=== PATIENT | female | born 1990 ===

== ENCOUNTER 2017-06-18 21:07 | Emergency (ER) | payer OTHER ==
--- NOTE | 2017-06-18 21:20 | EDM.PDOC ---
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 Patient's approximately 9 weeks . This was confirmed via OB/ [employer] MACH[employer] Dr. Padron in his office. She's been seen weekly to ensure hormone levels are increasing to which they have been. She has a history of ectopic pregnancyx1 on the left side and also history of miscarriagex1. States the bleeding started this evening at approximately 8:30 after returning home from work. Discharge is pink in color. She has had some abdominal cramping as well with onset of spotting. Bleeding has not saturated her pad. Discomfort currently 3 out of 10. She had sexual intercourse yesterday with no discomfort. Denies any heavy lifting, strenuous activities today that may have precipitated this. Her last menstrual cycle was April 21 through the . Blood type is O+. There's been no abnormal discharge or foul odor present. She denies any dysuria, dizziness, vomiting, or any underlying bleeding disorders. She has no additional past medical history and currently taking vitamins. history 4, para 1, miscarriage 1, ectopic 1, 0. Pelvic Pain Score (Numeric/FACES): 4 - Related Data Allergies Allergy/AdvReac Type Severity Reaction Status Date / Time Sulfa (Sulfonamide Allergy Hives Verified 06/18/17 21:20 Antibiotics) Home Meds: Home Meds . [No Known Home Meds] 06/18/17 [History] ED ROS GENERAL - Review of Systems Review Of Systems: ROS reveals no pertinent complaints other than HPI. Constitutional: Reports: No Symptoms HEENT: Reports: No Symptoms Respiratory: Reports: No Symptoms Cardiovascular: Reports: No Symptoms GI/Abdominal: Reports: Nausea (Intermittent), Other (Mild discomfort noted to the right adnexal region. Negative McBurneys and/or murphys sign. ). Denies: Vomiting : Reports: Other (Scan blood present.). Denies: Discharge, Dysuria, Urgency, Urinary Retention Musculoskeletal: Reports: No Symptoms Skin: Reports: No Symptoms Neurological: Reports: No Symptoms Psychiatric: Reports: No Symptoms Hematologic/Lymphatic: Reports: No Symptoms ED EXAM - Physical Exam Exam: See Below Exam Limited By: No Limitations General Appearance: Alert, WD/WN, No Apparent Distress Ears: Hearing Grossly Normal Nose: Normal Inspection Throat/Mouth: Normal Voice, No Airway Compromise Neck: Normal Inspection, Supple Respiratory/Chest: No Respiratory Distress, Lungs Clear, Normal Breath Sounds, No Accessory Muscle Use Cardiovascular: Normal Peripheral Pulses, Regular Rate, Rhythm GI/Abdominal Exam: Normal Bowel Sounds, Soft, No Organomegaly, No Distention, Tender (Noted to the right adnexal region. Negative McBurney's point/Taylor sign.) (Female) Exam: Other (Deferred) Back Exam: Normal Inspection. No: CVA Tenderness (L), CVA Tenderness (R) Neurological: Alert, Oriented, CN II-XII Intact, Normal Cognition, No Motor/ Sensory Deficits Psychiatric: Normal Affect, Normal Mood Skin Exam: Warm, Dry, Intact, Normal Color, No Rash Course - Vital Signs Last Recorded V/S: Last Vital Signs Temp 98.6 F 06/18/17 21:17 Pulse 72 06/18/17 21:17 Resp 18 06/18/17 21:17 BP 102/62 06/18/17 21:17 Pulse Ox 100 06/18/17 21:17 - Orders/Labs/Meds Orders: Active Orders 24 hr Category Date Time Status OB Transvaginal [US] Stat Exams 06/18/17 21:39 Taken Labs: Laboratory Tests 06/18/17 06/18/17 06/18/17 Range/Units 21:31 21:40 21:40 WBC 10.13 H (3.98-10.04) K/mm3 RBC 4.85 (3.98-5.22) M/mm3 Hgb 14.5 (11.2-15.7) gm/L Hct 43.8 (34.1-44.9) % MCV 90.3 (79.4-94.8) fl MCH 29.9 (25.6-32.2) pg MCHC 33.1 (32.2-35.5) g/dl RDW Std Deviation 42.8 (36.4-46.3) fL Plt Count 301 (182-369) K/mm3 MPV 9.4 (9.4-12.3) fl Neutrophils % (Manual) 71 H (40-60) % Band Neutrophils % 0 (0-10) % Lymphocytes % (Manual) 23 (20-40) % Atypical Lymphs % 0 % Monocytes % (Manual) 6 (2-10) % Eosinophils % (Manual) 0 L (0.7-5.8) % Basophils % (Manual) 0 L (0.1-1.2) Platelet Estimate Adequate Plt Morphology Comment Normal RBC Morph Comment Normal PT 10.0 (9.5-12.1) SECONDS INR 0.92 APTT 29 (24-31) SECONDS Sodium (136-145) mEq/L Potassium (3.5-5.1) mEq/L Chloride (98-107) mEq/L Carbon Dioxide (21-32) mEq/L Anion Gap (5-15) BUN (7-18) mg/dL Creatinine (0.55-1.02) mg/dL Est Cr Clr Drug Dosing mL/min Estimated GFR (MDRD) (>60) mL/min BUN/Creatinine Ratio (14-18) Glucose (74-106) mg/dL Calcium (8.5-10.1) mg/dL Total Bilirubin (0.2-1.0) mg/dL AST (15-37) U/L ALT (14-59) U/L Alkaline Phosphatase (46-116) U/L Total Protein (6.4-8.2) g/dl Albumin (3.4-5.0) g/dl Globulin gm/dL Albumin/Globulin Ratio (1-2) HCG, Quant mIU/mL Urine Color Yellow (Yellow) Urine Appearance Clear (Clear) Urine pH 6.5 (5.0-8.0) Ur Specific Eckerman 1.020 (1.005-1.030) Urine Protein Negative (Negative) Urine Glucose (UA) Negative (Negative) Urine Ketones Negative (Negative) Urine Occult Blood Trace-lysed H (Negative) Urine Nitrite Negative (Negative) Urine Bilirubin Negative (Negative) Urine Urobilinogen 0.2 (0.2-1.0) Ur Leukocyte Esterase Negative (Negative) Urine RBC 0-5 (0-5) /hpf Urine WBC 0-5 (0-5) /hpf Ur Epithelial Cells 0-5 (0-5) /hpf Amorphous Sediment Moderate H (NOT SEEN) /hpf Urine Bacteria Few (FEW) /hpf Urine Mucus Few (FEW) /hpf Blood Type 06/18/17 06/18/17 Range/Units 21:40 21:40 WBC (3.98-10.04) K/mm3 RBC (3.98-5.22) M/mm3 Hgb (11.2-15.7) gm/L Hct (34.1-44.9) % MCV (79.4-94.8) fl MCH (25.6-32.2) pg MCHC (32.2-35.5) g/dl RDW Std Deviation (36.4-46.3) fL Plt Count (182-369) K/mm3 MPV (9.4-12.3) fl Neutrophils % (Manual) (40-60) % Band Neutrophils % (0-10) % Lymphocytes % (Manual) (20-40) % Atypical Lymphs % % Monocytes % (Manual) (2-10) % Eosinophils % (Manual) (0.7-5.8) % Basophils % (Manual) (0.1-1.2) Platelet Estimate Plt Morphology Comment RBC Morph Comment PT (9.5-12.1) SECONDS INR APTT (24-31) SECONDS Sodium 141 (136-145) mEq/L Potassium 3.6 (3.5-5.1) mEq/L Chloride 103 (98-107) mEq/L Carbon Dioxide 28 (21-32) mEq/L Anion Gap 13.6 (5-15) BUN 13 (7-18) mg/dL Creatinine 0.7 (0.55-1.02) mg/dL Est Cr Clr Drug Dosing 95.01 mL/min Estimated GFR (MDRD) > 60 (>60) mL/min BUN/Creatinine Ratio 18.6 H (14-18) Glucose 87 (74-106) mg/dL Calcium 9.6 (8.5-10.1) mg/dL Total Bilirubin 0.2 (0.2-1.0) mg/dL AST 17 (15-37) U/L ALT 13 L (14-59) U/L Alkaline Phosphatase 39 L (46-116) U/L Total Protein 7.6 (6.4-8.2) g/dl Albumin 4.2 (3.4-5.0) g/dl Globulin 3.4 gm/dL Albumin/Globulin Ratio 1.2 (1-2) HCG, Quant 45979.0 mIU/mL Urine Color (Yellow) Urine Appearance (Clear) Urine pH (5.0-8.0) Ur Specific Eckerman (1.005-1.030) Urine Protein (Negative) Urine Glucose (UA) (Negative) Urine Ketones (Negative) Urine Occult Blood (Negative) Urine Nitrite (Negative) Urine Bilirubin (Negative) Urine Urobilinogen (0.2-1.0) Ur Leukocyte Esterase (Negative) Urine RBC (0-5) /hpf Urine WBC (0-5) /hpf Ur Epithelial Cells (0-5) /hpf Amorphous Sediment (NOT SEEN) /hpf Urine Bacteria (FEW) /hpf Urine Mucus (FEW) /hpf Blood Type O POSITIVE - Re-Assessments/Exams Free Text/Narrative Re-Assessment/Exam: Initial labs and studies include: CBC, chem 14,coag studies, hCG quantitative, ABO/Rh type, UA , and OB transvaginal ultrasound. Labs reviewed: CBC and chemistry panel were essentially normal. HCG quantitative 70,944. UA positive for trace lysed blood and also moderate amorphous sediment. Patient's blood type is O+. Patient's quantitative hCG has increased from 15,583 on June 05, 2017 to [address]. US OB Transvaginal Findings: : Gestation: There is a gravid uterus containing an early viable intrauterine . A well-defined gestational side with viable pole is noted within the fundus of the uterus Using a crown-rump length of 18 mm, a sonographic gestational age of 8 weeks 2 days of pain The cardiac rate was regular at a rate of 168 beats per minute Placenta/amniotic fluid: Cannot be adequately evaluated due to the early gestational age. Uterus/cervix: Unremarkable. No myometrial mass. Ovaries: Left ovary normal 4.1 x 1.9 cm Right ovary 4.1 x 2.1 cm and contains a 10 mm corpus luteal cyst of No mass. Free fluid: No free fluid. IMPRESSION: Early viable intrauterine with a sonographic gestational age of 8 weeks 2 days. The sonographic EDC is 01/26/2018. Small amount of free fluid in the cul-de-sac. 1123 discussed results of labs and ultrasound with the patient. She has had no additional spotting with evaluation in the E.D. VS stable. Patient will be discharged home. Departure - Departure Time of Disposition: 23:24 Disposition: Home, Self-Care 01 Condition: Good Clinical Impression: Vaginal spotting, Vaginal bleeding affecting early - Discharge Information Instructions: Vaginal Bleeding During , First Trimester Referrals: Jace Padron MD [Physician] - Forms: ED Department Discharge Additional Instructions: No sexual intercourse and or strenuous activities until evaluated by Dr. Padron OB /Aviation Technician this week for first part of next week. Utilize tylenol for pain. Return to the E.D. if you develop worsening pain, heavy bleeding with passing of clots/ tissue, or any additional new or worsening symptoms. - My Orders Last 24 Hours: My Active Orders 06/18/17 21:39 OB Transvaginal [US] Stat - Assessment/Plan Last 24 Hours: My Active Orders 06/18/17 21:39 OB Transvaginal [US] Stat
--- NOTE | 2017-06-19 07:01 | US ---
First trimester obstetrical ultrasound: Multiple real-time images were obtained transvaginally. Comparison: Previous obstetrical ultrasound of 05/17/17. Dates: LMP: LMP given as 04/21/17, BLANCA 01/26/18, gestational age 8 weeks 2 days Current ultrasound: BLANCA 01/26/18, gestational age 8 weeks 2 days Single intrauterine gestation is seen. Amniotic fluid volume is normal. Embryo and yolk sac are identified. No subchorionic hemorrhage is identified. Maternal ovaries are seen and appear within normal limits. Small amount of fluid is seen within the cul-de-sac which is felt to be incidental. Measurements: Gillham-rump length: 1.80 cm - 8 weeks 2 days Heart rate: 169 bpm Impression: 1. Single intrauterine gestation. Dates as noted above. 2. No complicating process is seen by ultrasound at this time. Diagnostic code #1 Agree with preliminary report issued by [employer] ([facility] preliminary report dictated on 06/19/17, 12:18 AM Central Time)
== END 2017-06-18 23:34 | disposition home or self-care (01) ==
LOC: JD.ED 21:07
DX: O26.851 Spotting complicating pregnancy, first trimester (principal); Z88.2 Allergy status to sulfonamides; Z3A.09 9 weeks gestation of pregnancy
CPT/HCPCS: 36415; 76817; 76817-26; 80053; 81001; 84702; 85025; 85610; 85730; 86900; 86901; 99283; 99284-25